=== PATIENT | female | born 1975 | race Two or more races ===

== ENCOUNTER 2017-04-19 11:38 | Emergency (ER) | payer OTHER ==
[~2017-04-19] VITALS: Ht 167.6 cm; Wt 54.4 kg
[2017-04-19 12:04] VITALS: BP 100/60
[2017-04-19] MEDS ORDERED: Ketorolac 30mg Inj IV ONE (12:30)
--- NOTE | 2017-04-19 12:39 | Emergency Room Report ---
History of Present Illness General Chief Complaint: Chest Pain Source: Patient Present Illness HPI 41YOF Walk-in with 5 days "chest pressure" central, radiates to back. Worse with movement, exercise, reproducible. Denies associated cough, URI symptoms Denies smoking, drug use, COPD/Asthma History of fibromyalgia, takes vitamins only Took clonazepam last night which helped her sleep but symptoms unrelieved in morning Had negative stress test in October 2016 Denies history of DVT, PE in self, family On control Allergies: Coded Allergies: LAMOTRIGINE (Verified Allergy, Unknown, 04/19/17) TRAMADOL (Verified Allergy, Unknown, 04/19/17) Patient History Past Medical History: other - Fibromyalgia Past Surgical History: none Pertinent Family History: DC Social History: Denies: alcohol use, drug use, smoking Last Menstrual Period: 04/03/17 Now: No Immunizations: UTD Reviewed Nursing Documentation: PMH: Agreed, PSxH: Agreed Review of Systems All Other Systems: negative except mentioned in HPI Physical Exam Vital Signs Date Time Temp Pulse Resp B/P Pulse Ox O2 Delivery O2 Flow Rate FiO2 04/19/17 11:45 Room Air 04/19/17 12:01 92 16 04/19/17 12:04 98.8 100/60 100 Sp02 EP Interpretation: reviewed, normal General Appearance: normal inspection, well appearing, no apparent distress, alert, GCS 15, non-toxic Head: normocephalic, atraumatic Eyes: bilateral eye EOMI, bilateral eye PERRL ENT: normal ENT inspection, hearing grossly normal, normal voice Neck: normal inspection, full range of motion, supple, no bony tend Respiratory: normal inspection, lungs clear, normal breath sounds, no respiratory distress, no retraction, no wheezing, other - Palpable ttp to midline of chest, chest symmetrical Cardiovascular #1: regular rate, rhythm, no edema Gastrointestinal: normal inspection, normal bowel sounds, non tender, soft, no guarding, no hernia Genitourinary: no CVA tenderness Musculoskeletal: normal inspection, back normal, normal range of motion, Dayana' s Sign negative Neurologic: normal inspection, alert, oriented x3, responsive, car top bolter III-XII nml as tested, motor strength/tone normal, speech normal Psychiatric: normal inspection, judgement/insight normal, mood/affect normal Skin: normal inspection, normal color, no rash Lymphatic: normal inspection Medical Decision Making Diagnostic Impression: Primary Impression: Chest pain Qualified Codes: R07.9 - Chest pain, unspecified ER Course Chest pain for 5 days - VSS. Afebrile. - Not hypoxic or tachycardic - ECG: No ischemia. Troponin 0. - Low suspicion for DVT/PE however on control so D-dimer was done but is WNL. - Rest of labs normal - CXR normal - Feels better with reassurance - Declined IV or PO pain meds DC home with PMD followup EKG Diagnostic Results Rate: normal Rhythm: NSR ST Segments: no acute changes ASA given to the pt in ED: No Rhythm Strip Diag. Results EP Interpretation: yes Rate: 76 Rhythm: NSR, no PVC's Chest X-Ray Diagnostic Results Chest X-Ray Diagnostic Results : Chest X-Ray Ordered: Yes # of Views/Limited/Complete: 1 View EP Interpretation: Yes Interpretation: no consolidation, no effusion, no pneumothorax, no acute cardiopulmonary disease Indication: Chest Pain Impression: No acute disease Interpreting ER Provider: Electronically signed by DR [place] Last Vital Signs Date Time Temp Pulse Resp B/P Pulse Ox O2 Delivery O2 Flow Rate FiO2 04/19/17 12:04 98.8 92 17 100/60 100 Room Air Status: improved Disposition: HOME, SELF-CARE NADINE CUBA M.D. Apr 19, 2017 12:39
[2017-04-19 12:56] VITALS: BP 100/71
[2017-04-19 12:57] LABS: TROPONIN I < 0.30 ng/mL (<=0.30)
[2017-04-19 12:58] LABS: ALANINE AMINOTRANSFERASE 8 U/L (3-33); ALBUMIN/GLOBULIN RATIO 1.6 (1.0-2.7); ANION GAP 12 (5-15); ASPARTATE AMINO TRANSFERASE 13 U/L (5-40); CALCIUM 9.4 mg/dL (8.6-10.2); CARBON DIOXIDE 24 mEQ/L (20-30); CHLORIDE 102 mEQ/L (98-107); CREATININE 0.8 mg/dL (0.5-0.9); GLOMERULAR FILTRATION RATE > 60 mL/min (>60); HEMOLYSIS 5; SODIUM 138 mEQ/L (135-145); TOTAL PROTEIN 6.9 g/dL (6.6-8.7)
[2017-04-19 13:02] LABS: BASOPHILS % (AUTO) 1.1 % (0.0-2.0); EOSINOPHILS % (AUTO) 0.3 % (0.0-3.0); LYMPHOCYTES % (AUTO) 35.8 % (20.0-45.0); MEAN CORPUSCULAR HEMOGLOBIN 29.7 PG (27.0-31.0); MEAN CORPUSCULAR HGB CONC 33.1 G/DL (32.0-36.0); MEAN CORPUSCULAR VOLUME 90 FL (80-99); MEAN PLATELET VOLUME 5.5 FL (6.5-10.1); MONOCYTES % (AUTO) 7.2 % (1.0-10.0); NEUTROPHILS % (AUTO) 55.6 % (45.0-75.0); PLATELET COUNT 261 K/UL (150-450); RED BLOOD COUNT 4.92 M/UL (4.20-5.40); RED CELL DISTRIBUTION WIDTH 11.8 % (11.6-14.8); WHITE BLOOD COUNT 5.8 K/UL (4.8-10.8)
[2017-04-19 13:08] LABS: CKMB < 1.5 ng/mL (< 3.8)
[2017-04-19 13:45] VITALS: BP 93/72
--- NOTE | 2017-04-20 08:58 | Diagnostic Imaging Report ---
Indication: Cough, chest pain Technique: Single AP view of the chest. Findings: Comparison: None. The bones and extra pulmonary soft tissues, cardiomediastinal silhouette, pulmonary vasculature and parenchyma, and pleural surfaces are unremarkable. IMPRESSION: Negative AP chest.
== END 2017-04-19 13:45 | disposition home or self-care (01) ==
LOC: EMR 12:05
DX: R07.9 Chest pain, unspecified (principal); M79.7 Fibromyalgia; Z88.8 Allergy status to other drugs, medicaments and biological substances; Z88.6 Allergy status to analgesic agent; Z82.49 Family history of ischemic heart disease and other diseases of the circulatory system
CPT/HCPCS: 36415; 71010; 80053; 82550; 82553; 84484; 85025; 85379; 93005; 99283